=== PATIENT | female | born 1975 | race Hispanic/Latino ===

== ENCOUNTER 2018-06-29 11:01 | Day surgery (SDC) | payer BC ==
[2018-06-25 18:52] VITALS: BMI 20.7
[2018-06-29] MEDS ORDERED: Lactated Ringer's 1,000 ML IV ONE ×3 (12:10→18:51)
[2018-06-29 12:21] LABS: BASO # 0.1 K/uL (0.0-0.2); BASO % 0.9 % (0.0-2.0); EOS # 0.1 K/uL (0.0-0.7); EOS % 1.6 % (0.0-4.0); HEMOGLOBIN 13.8 g/dL (12.0-16.0); LYMPH # 1.9 K/uL (1.0-4.3); LYMPH % 31.3 % (20.0-40.0); MEAN CELL VOLUME 90.7 fl (81.0-99.0); MEAN CORPUSCULAR HEMOGLOBIN 30.8 pg (27.0-31.0); MEAN PLATELET VOLUME 9.1 fl (7.2-11.7); MONO # 0.5 K/uL (0.0-0.8); MONO % 7.5 % (0.0-10.0); NEUT # 3.6 K/uL (1.8-7.0); NEUT % 58.7 % (50.0-75.0); NRBC % 0.1 % (0.0-0.0); RBC 4.49 Mil/uL (3.80-5.20); RED CELL DISTRIBUTION WIDTH 12.6 % (11.5-14.5); WHITE BLOOD COUNT 6.1 K/uL (4.8-10.8)
[2018-06-29] MEDS ORDERED: Succinylcholine Chloride 20 mg/ml Syr (5 ml) IV ONE (14:52)
[2018-06-29] MEDS ORDERED: Rocuronium 10 mg/ml (5 ml) ONE (14:52)
[2018-06-29] MEDS ORDERED: Lidocaine 4% (Laryng-O-Jet) Kit MM ONE (14:52)
[2018-06-29] MEDS ORDERED: Propofol 10 mg/ml Inj (20 ML) ONE (14:52)
[2018-06-29] MEDS ORDERED: Midazolam 2 MG/2 ML VIAL ONE (14:52)
[2018-06-29] MEDS ORDERED: Silver Nitrate Topical - Stick ONE (16:32)
[2018-06-29] MEDS ORDERED: Bupivacaine HCl 0.5% PF (30 ml) Inj ONE (16:33)
[2018-06-29] MEDS ORDERED: Dexamethasone 4 mg/1 ml ONE (17:13)
[2018-06-29] MEDS ORDERED: ePHEDrine 50 mg/ml Inj ONE (17:29)
[2018-06-29] MEDS ORDERED: Sodium Chloride 0.9% 10 ML IV ONE (17:29)
[2018-06-29] MEDS ORDERED: Bupivacaine 0.5% Inj(30mL) IJ ONE (17:30)
[2018-06-29] MEDS ORDERED: Silver Nitrate Topical - Stick TOP ONE (17:50)
[2018-06-29] MEDS ORDERED: Neostigmine 1:1000 (1 mg/ml) Inj ONE (17:52)
[2018-06-29] MEDS ORDERED: Oxycodone/Acetaminophen 5/325 mg Tab PO PRN (18:14)
[2018-06-29] MEDS ORDERED: HYDROmorphone 0.5 mg/0.5 ml ISec IVP PRN (18:14)
[2018-06-29] MEDS ORDERED: Lactated Ringer's 1,000 ML IV SCH ×2 (18:15→18:30)
[2018-06-29] MEDS ORDERED: Dexamethasone 4 mg/1 ml IVP PRN (18:17)
[2018-06-29] MEDS ORDERED: HYDROmorphone 0.5 mg/0.5 ml ISec ONE ×2 (18:20→18:34)
[2018-06-29] MEDS: HYDROmorphone 0.5 mg/0.5 ml ISec IVP PRN ×2 (18:25→18:30)
[2018-06-29 19:46] VITALS: O2SAT 98
[2018-06-29 23:17] VITALS: BP 101/61; PULSE 74; RESP 20; TEMP 99.2
--- NOTE | 2018-06-30 07:23 | OP ---
PROCEDURE DATE: 06/29/2018 SURGEON: Federico Chan MD SCREEN PRINTING PASTER: Eros Frazier MD ANESTHESIOLOGIST: Tesfaye Watts MD TYPE OF ANESTHESIA: General endotracheal. PREOPERATIVE DIAGNOSES: 1. Incapacitating pelvic pain. 2. Incapacitating abdominal pain. 3. rule out endometriosis POSTOPERATIVE DIAGNOSES: 1. Incapacitating pelvic pain. 2. Incapacitating abdominal pain. 3. pelvic endometriosis PROCEDURES PERFORMED: 1. Exam under anesthesia. 2. Video assisted hysteroscopy. 3. Cystoscopy. 4. Bilateral ureteral catheterization and injection of IC-Green dye. 5. Robotic da Maxine operative laparoscopy. 6. Treatment of endometriosis. COMPLICATIONS: None. SAMPLES SENT: multiple INDICATION FOR THE PROCEDURE AND CONSENT: The patient had a long history of pelvic pain, dysmenorrhea, dyspareunia, abdominal pain, and bladder pain. The patient had been thoroughly evaluated and counseled regarding the pros and cons of the procedure, the reasonable alternatives, and possible complications. She understood and accepted the risks involved. Literature was provided to the patient. The patient was understanding and given her history and per surgical exam, she was at high risk in an average patient. She accepted all the risks involved, and all the questions had been answered to her satisfaction. FINDINGS OF SURGERY: Genitalia: Normal external genitalia, cervix without lesion and polyps. Hysteroscopy: Hysteroscopy shows a clear uterine cavity with no polyps or masses noticed. Cystoscopy: The cystoscopy was performed to rule out endometriosis and also any interstitial cystitis and also injury. The bladder was normal with no evidence of stone, trigonitis, or cystitis. A positive jet flow was identified in both ureters. Laparoscopy: The upper abdomen appeared to be normal. Gallbladder was normal. Liver edges appeared to be normal. Ascending colon and transverse were normal. There was evidence mild endometriosis of the cul de sac Both fallopian tubes appeared to be patent, DESCRIPTION OF THE PROCEDURE: Initiation of the case: After adequate anesthesia was obtained, the patient was placed in the dorsal lithotomy position, and with extreme care, placement of the patient with hyperextension and hyperflexing of the hips. At this point, the patient was prepped and draped. The surgeon was gowned and gloved. A timeout was taken according to the hospital procedure and the procedure was started. At this point, we performed cystoscopy, bilateral ureteral catheterization. A cystoscope was inserted into the bladder under direct visualization and the bladder was visualized. The bladder was free of lesions and tumors. There was no evidence of interstitial cystitis, and there was only mild amount of trigonitis. At this point, both ureters were identified and appeared to be in their normal anatomical position. At this point, utilizing an open 5-St Helenian open-ended catheter, the left ureter was catheterized all the way to the distal ureter, and 5 mL of IC-Green was injected into this ureter. Similarly, the contralateral ureter was catheterized all the way to the distal ureter, and 5 mL of IC-Green was injected into the distal ureter. At this point, the stents were removed, and the cystoscope was removed, and the 16-St Helenian Monteiro was inserted into the bladder. At this point, we proceeded with a hysteroscopy. A speculum was placed into vagina, and the anterior lip of the cervix was grasped. The cervix was dilated, and a hysteroscope was inserted into the cavity. The cavity appeared to be of normal size with no evidence of polyps, cysts, adenomyosis, or fibroids. At this point, we proceeded with placement of a trocar and docking of the da Maxine Xi robot. The surgeon was re-gowned and gloved, and open laparoscopy was performed by making incision in the umbilicus and the fascia was incised. The peritoneum was entered in a blunt fashion, and the cannula was inserted under direct visualization. The abdomen was insufflated, and under direct visualization, three additional ports were inserted in the left upper quadrant, left mid quadrant, and right upper quadrant. At this point, the da Maxine Xi robot was brought into the field and docked, and the instruments were inserted under direct visualization. All this with extreme care not to injure the bowel or another area. As per dictation, the upper abdomen appeared to be normal with no evidence of any lesions. At this point, we proceeded with treatment of endometriosis and excision of endometriosis. Areas of fibrosis and endometriosis were identified in the posterior cul-de-sac and in the rectovaginal space which was also affected with endometriosis and fibrosis. At this point, we proceeded with the excision of perirectal endometriosis. The rectovaginal area had significant fibrosis and additional endometriosis was dissected from the posterior aspect of the uterus, and the rectovaginal space was entered at the level of the peritoneal reflection. All this done making sure that no damage to the rectum was performed. At this point, endometriosis was also excised from the right uterosacral area which also was affected by fibrosis and endometriosis. At this point, it was checked for hemostasis and appeared to be excellent. Both fallopian tubes were in good condition and patent. At this point we proceeded with destruction of inflammatory areas utilizing the j-plasma energy device. we checked for hemostasis and organ integrity and all was normal. At this point, the da Maxine Xi robot was removed. The abdomen was desufflated, and the incisions were closed in layers with 0 PDS for the fascia and 4-0 Monocryl for the skin. At the end of the procedure, alltips and instrument counts were correct. The patient tolerated the procedure well and was taken to the recovery room in excellent condition. Rocio ACKERMAN, Federico GRIMES
== END 2018-06-30 00:15 | disposition home or self-care (01) ==
LOC: H.OPSURG 11:01 → H.PEDS 20:17 → H.OPSURG 06-30 00:15
PROVIDERS: ATTEND Obstetrics & Gynecology Reproductive Endocrinology
DX: N80.0 Endometriosis of uterus (principal); M19.90 Unspecified osteoarthritis, unspecified site; R10.2 Pelvic and perineal pain; N94.6 Dysmenorrhea, unspecified
CPT/HCPCS: 36415; 58563; 58662; 85025; 86850; 86900; 88305; C1729; J0690; J1100; J1170; J1885; J2001; J2250; J2405; J2704; J2710; J2765; J3010; J7030; J7120